=== PATIENT | female | born 1985 | race Caucasian/White ===

== ENCOUNTER 2019-03-16 04:29 | Emergency (ER) | payer OTHER ==
[~2019-03-16] VITALS: Ht 170.2 cm; Wt 61.0 kg
[2019-03-16] MEDS ORDERED: ADDE10 PO (04:36)
[2019-03-16] MEDS ORDERED: ALBU8HFA IH (04:36)
[2019-03-16] MEDS ORDERED: ALPR0.255 PO (04:36)
[2019-03-16 04:47] VITALS: BP 130/89
[2019-03-16] MEDS: LORazepam 1 MG TABLET PO ONE (05:04)
== END 2019-03-16 05:15 | disposition left against medical advice (07) ==
LOC: EMS 04:29
DX: F41.9 Anxiety disorder, unspecified (principal); J06.9 Acute upper respiratory infection, unspecified; J45.909 Unspecified asthma, uncomplicated; F17.210 Nicotine dependence, cigarettes, uncomplicated; Z88.5 Allergy status to narcotic agent
CPT/HCPCS: 93005

== ENCOUNTER 2019-03-19 15:25 | Emergency (ER) | payer OTHER ==
[~2019-03-19 15:25] MED LIST: ADDE10 PO; ALBU8HFA IH; ALPR0.255 PO
== END 2019-03-19 18:39 | disposition left against medical advice (07) ==
LOC: EMS 15:26
DX: J11.1 Influenza due to unidentified influenza virus with other respiratory manifestations (principal); Z53.21 Procedure and treatment not carried out due to patient leaving prior to being seen by health care provider